=== PATIENT | male | born 1950 | race Caucasian/White ===

== ENCOUNTER → 2016-09-25 | Outpatient (CLI) | payer BC ==
[~2016-09-25] MED LIST: ASPEC325 PO; ASTEPRO; COMBIGAN OPR; FLNIN NAE; LATA0.009 OPB; REVIEWED; SIMV5TAB2 PO
--- NOTE | 2016-09-25 10:11 | DIAGNOSTIC IMAGING REPORT ---
LEFT SHOULDER 3 VIEWS HISTORY: Left shoulder pain. COMPARISON: None. FINDINGS: There is no fracture or dislocation. Soft tissues are unremarkable. No radiopaque foreign bodies. A left clavicle is intact. Mild AC joint arthropathy. IMPRESSION: Mild degenerative changes at the AC joint. No fractures within the left shoulder. Electronically signed by: Mu Magana M.D. 09/25/2016 10:10 AM Dictated Date/Time: 09/25/2016 10:08 AM
--- NOTE | 2016-09-25 10:12 | DIAGNOSTIC IMAGING REPORT ---
LEFT HIP UNILATERAL MIN 2 VIEWS CLINICAL HISTORY: LEFT SHOULDER LEFT HIP PAIN pain COMPARISON: None. DISCUSSION: Mild degenerative narrowing left hip joint space. Partial cartilaginous and or synovial calcification immediately adjacent to the lateral margin of the left superior acetabulum. No significant trochanteric calcification. No evidence for acetabular protrusion. There is no evidence for soft tissue swelling. IMPRESSION: Minimal degenerative narrowing left hip joint space with evidence for early chondrocalcinosis versus synovial calcification. The above report was generated using voice recognition software. It may contain grammatical, syntax or spelling errors. Electronically signed by: Lc Figueroa M.D. 09/25/2016 10:10 AM Dictated Date/Time: 09/25/2016 10:09 AM
== END | disposition home or self-care (01) ==
LOC: C.RDSM 11:27
PROVIDERS: ATTEND Internal Medicine
DX: M25.519 Pain in unspecified shoulder (principal); M25.559 Pain in unspecified hip

== ENCOUNTER → 2016-12-31 | Day surgery (SDC) | payer BC ==
[2016-12-18 15:37] VITALS: Ht 175.3 cm; Wt 86.4 kg
[~2016-12-31] VITALS: Ht 175.3 cm; Wt 86.4 kg
[~2016-12-31] MED LIST changes: +ASPCH81X PO; -ASPEC325 PO; -ASTEPRO; +BIMA0.01 OPB; +BIOT1CAP8 PO; +BRIMONIDINE TART 0.2% OP SOLN PER DROP CHARGE OPR ONE; +BRIMONIDINE TARTRATE 0.2% 5ML OP SCH; +BRIMONIDINE TARTRATE 0.2% 5ML OPR SCH; -COMBIGAN OPR; +CRESTOR PO; +EYE DROP OPB; -FLNIN NAE; -LATA0.009 OPB; +LISIPOW PO; +PILOCARPINE HCL 2% OP SOLN 15 ML BTL ONE; +PILOCARPINE HCL 2% OP SOLN 15 ML BTL OPR SCH; +PROPARACAINE 0.5% OP SOLN PER DROP CHARGE OPR SCH; +PrednisoLONE ACET 1% OP SUSP 5 ML BTL OP SCH; +PrednisoLONE ACET 1% OP SUSP 5 ML BTL OPR ONE; -REVIEWED; -SIMV5TAB2 PO; +TAMS0.4C38 PO
--- NOTE | 2016-12-31 10:37 | Discharge Instructions-SurgCtr ---
Discharge Instructions Date of Service Dec 31, 2016. Visit Reason for Visit: Glaucoma Right Eye Discharge Discharge Diagnosis / Problem: glaucoma Discharge Goals Goal(s): Improve disease control Activity Recommendations Activity Limitations: resume your previous activity Anesthesia . Post Anesthesia Instructions: If you have had General Anesthesia or IV Sedation: * Do not drive today. * Resume driving when surgeon permits. * Do not make important decisions or sign legal documents today. * Call surgeon for: 1. Temperature elevations greater than 101 degrees F. 2. Uncontrollable pain. 3. Excessive bleeding. 4. Persistent nausea and vomiting. 5. Medication intolerance (nausea, vomiting or rash). * For nausea and vomiting use only clear liquids such as: tea, soda, bouillon until nausea subsides, then gradually increase diet as tolerated. * If you have any concerns or questions, call your surgeon's office. If physician is unavailable and it is an emergency, call 911 or go to the nearest emergency room. . Instructions / Follow-Up Instructions / Follow-Up ACTIVITY RECOMMENDATIONS: * No limitations RETURN TO SCHOOL/WORK: * No limitations DIET: * No limitations MEDICATIONS: Resume previous medications unless instructed otherwise by your surgeon. * Please use Prednisolone acetate drops prescription given to you at your office appointment as follows: 1 drop in effected eye 4 times a day for 5 days. * Continue all glaucoma drops as usual with no interruption to either eye. SPECIAL CARE INSTRUCTIONS: Call your doctor at with any concerns or problems. FOLLOW UP VISIT: Follow-up with Dr Howell in 1 hour. Diet Recommendations Home Diet: resume previous diet Pending Studies Studies pending at discharge: no Medical Emergencies . Who to Call and When: Medical Emergencies: If at any time you feel your situation is an emergency, please call 911 immediately. . Non-Emergent Contact Non-Emergency issues call your: [employer]ice . . "Provider Documentation" section prepared by Tate Howell. .
[2016-12-31 10:38] VITALS: BP 129/70; PULSE 56; O2SAT 97
--- NOTE | 2016-12-31 10:38 | [facility] Operative Report ---
Operative Report Date of Service Dec 31, 2016. Operative Report Diagnosis: Open angle glaucoma, right eye Procedure: SLT superior 180 degrees right eye 66 spots at 1.4 mJ Complications: none I attest to the content of the Intraoperative Record and any orders documented therein. Any exceptions are noted below.
== END | disposition home or self-care (01) ==
LOC: X.SURG 09:17
PROVIDERS: ATTEND Ophthalmology
DX: H40.1110 Primary open-angle glaucoma, right eye, stage unspecified (principal)

== ENCOUNTER → 2016-12-31 | Outpatient (CLI) | payer BC ==
[~2016-12-31] MED LIST changes: -BRIMONIDINE TART 0.2% OP SOLN PER DROP CHARGE OPR ONE; -BRIMONIDINE TARTRATE 0.2% 5ML OP SCH; -BRIMONIDINE TARTRATE 0.2% 5ML OPR SCH; -PILOCARPINE HCL 2% OP SOLN 15 ML BTL ONE; -PILOCARPINE HCL 2% OP SOLN 15 ML BTL OPR SCH; -PROPARACAINE 0.5% OP SOLN PER DROP CHARGE OPR SCH; -PrednisoLONE ACET 1% OP SUSP 5 ML BTL OP SCH; -PrednisoLONE ACET 1% OP SUSP 5 ML BTL OPR ONE
== END | disposition home or self-care (01) ==
LOC: C.LABSPEC 10:41
PROVIDERS: ATTEND Urology
DX: R97.20 Elevated prostate specific antigen [PSA] (principal); R30.0 Dysuria

== ENCOUNTER → 2017-05-07 | Outpatient (CLI) | payer BC ==
[~2017-05-07] MED LIST changes: +B-CO1CAP3; +CHOL1000 PO; +DORZ1SOL6 OP; -EYE DROP OPB; +IMD/2 PO
--- NOTE | 2017-05-07 08:34 | DIAGNOSTIC IMAGING REPORT ---
R ELBOW MIN 3 VIEWS CLINICAL HISTORY: 66 years-old Male presenting with RIGHT SHOULDER AND ELBOW PAIN. TECHNIQUE: Frontal, oblique, and lateral views of the right elbow were obtained. COMPARISON: None. FINDINGS: No elbow joint effusion. No acute fracture or malalignment. No advanced degenerative change. No radiographic soft tissue abnormality. IMPRESSION: No acute osseous injury or advanced degenerative change. Electronically signed by: Aidan Harley M.D. 05/07/2017 8:33 AM Dictated Date/Time: 05/07/2017 8:32 AM
--- NOTE | 2017-05-07 08:34 | DIAGNOSTIC IMAGING REPORT ---
R SHOULDER MIN 2 VIEWS CLINICAL HISTORY: Right shoulder pain COMPARISON: None. DISCUSSION: No fractures or dislocations are visualized. There are no visible periarticular calcifications. IMPRESSION: No significant bony abnormalities Electronically signed by: Albert Gutierrez M.D. 05/07/2017 8:33 AM Dictated Date/Time: 05/07/2017 8:32 AM
== END | disposition home or self-care (01) ==
LOC: C.RDSM 16:49
PROVIDERS: ATTEND Internal Medicine
DX: M25.511 Pain in right shoulder (principal); M25.521 Pain in right elbow